=== PATIENT | female | born 2000 | race Caucasian/White ===

== ENCOUNTER 2021-11-03 05:02 | Inpatient (IN) | payer OTHER ==
[~2021-11-03 05:02] MED LIST: Sodium Chloride 0.9% 10 ML Syringe FLUSH PRN
[2021-11-03] MEDS: Lactated Ringers 1,000 ML IV SCH ×2 (06:07→08:07)
[2021-11-03] MEDS ORDERED: Terbutaline 1 MG/ML SDV SUBCUT ONE (07:00)
[2021-11-03] MEDS ORDERED: Citric Acid/Sodium Citrate Solution 30 ML Cup PO ONE (07:00)
[2021-11-03] MEDS ORDERED: Metoclopramide 10 MG/2 ML SDV IVPUSH ONE (07:00)
[2021-11-03] MEDS ORDERED: diphenhydrAMINE 50 MG/ML SDV IVPUSH PRN ×2 (07:46→10:34)
[2021-11-03] MEDS ORDERED: fentaNYL 100 MCG/2 ML SDV IVPUSH PRN (07:46)
[2021-11-03] MEDS ORDERED: Ondansetron 4 MG/2 ML SDV IVPUSH PRN (07:46)
[2021-11-03] MEDS ORDERED: Bupivacaine 0.5% 30 ML SDV ONE (07:48)
[2021-11-03] MEDS ORDERED: Ondansetron 4 MG/2 ML SDV ONE (07:50)
[2021-11-03] MEDS ORDERED: ceFAZolin 2 GM Vial ONE (07:50)
[2021-11-03] MEDS ORDERED: Morphine PF 10 MG/10 ML SDV ONE (07:50)
[2021-11-03] MEDS ORDERED: Lactated Ringers 2,000 ML ONE (07:50)
[2021-11-03] MEDS ORDERED: Oxytocin 10 Units/1 ML SDV ONE (07:50)
[2021-11-03] MEDS ORDERED: ceFAZolin 2 GM in Sodium Chloride 0.9% 50 ML IV ONE (08:00)
[2021-11-03] MEDS ORDERED: Oxytocin/Lactated Ringers 10 UNIT/1,000 ML BAG IV SCH (08:00)
[2021-11-03] MEDS ORDERED: diphenhydrAMINE 50 MG/ML SDV ONE (08:44)
[2021-11-03] MEDS ORDERED: Dexamethasone 4 MG/ML SDV ONE (08:47)
[2021-11-03] MEDS ORDERED: Sodium Chloride 0.9% 10 ML Syringe FLUSH SCH (09:00)
[2021-11-03] MEDS ORDERED: ePHEDrine 50 MG/ML SDV IVPUSH PRN (10:34)
[2021-11-03] MEDS ORDERED: Naloxone 0.4 MG/ML SDV IVPUSH PRN (10:34)
[2021-11-03] MEDS ORDERED: Dextrose 5%-Lactated Ringers 1,000 ML IV SCH (10:34)
[2021-11-03] MEDS: Acetaminophen/oxyCODONE 325-5 MG Tab PO PRN ×2 (11:35→18:11)
[2021-11-03] MEDS: Ibuprofen 600 MG Tab PO PRN (15:26)
[2021-11-04] MEDS: Ibuprofen 600 MG Tab PO PRN ×2 (04:09→21:10)
[2021-11-04] MEDS: Acetaminophen/oxyCODONE 325-5 MG Tab PO PRN ×4 (04:10→21:10)
[2021-11-05] MEDS: Acetaminophen/oxyCODONE 325-5 MG Tab PO PRN ×2 (01:38→09:30)
[2021-11-05] MEDS: Ibuprofen 600 MG Tab PO PRN (04:01)
== END 2021-11-05 09:55 | disposition home or self-care (01) | DRG 788 ==
LOC: JD.OB 05:02 → OBSVTOIN 05:02
PROVIDERS: ADMIT Obstetrics & Gynecology; ATTEND Obstetrics & Gynecology
PROC: 10D00Z1 Extraction of Products of Conception, Low, Open Approach (ICD-10-PCS; principal; 2021-11-03)
DX: O32.1XX0 Maternal care for breech presentation, not applicable or unspecified (principal); Z3A.39 39 weeks gestation of pregnancy; Z37.0 Single live birth; Z20.822 Contact with and (suspected) exposure to COVID-19
CPT/HCPCS: 36415; 59025; 59412; 85025; 85461; 86592; 86850; 86870; 86900; 86901; 94762; A9270-GY; J0690; J1100; J1200; J2274; J2405; J2590; J2765; J2790; J3105; J3490; J7120; U0002